=== PATIENT | male | born 1980 | race Caucasian/White ===

== ENCOUNTER 2017-02-18 10:29 | Emergency (ER) | payer BC, OTHER ==
[2017-02-18 10:45] VITALS: BP 124/77; PULSE 81; TEMP 97.9; BMI 24.9
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
== END 2017-02-18 11:40 | disposition home or self-care (01) ==
LOC: FER 10:29
PROC: 2W3FX1Z Immobilization of Left Hand using Splint (ICD-10-PCS; principal; 2017-02-18)
DX: S52.502A Unspecified fracture of the lower end of left radius, initial encounter for closed fracture (principal); W03.XXXA Other fall on same level due to collision with another person, initial encounter; Y93.89 Activity, other specified; Y92.89 Other specified places as the place of occurrence of the external cause
CPT/HCPCS: 73110-TC-LT; 99281-25

== ENCOUNTER 2018-05-21 19:18 | Emergency (ER) | payer BC, OTHER ==
[2018-05-21] MEDS ORDERED: NAPROXEN 500 MG TABLET (FP) PO ONE (19:29)
[2018-05-21] MEDS ORDERED: CEPHALEXIN MONOHYDRATE 500 MG CAPSULE (UD) PO ONE (19:29)
[2018-05-21] MEDS ORDERED: CEPHALEXIN MONOHYDRATE 500 MG CAPSULE (UD) ONE (19:33)
[2018-05-21] MEDS ORDERED: NAPROXEN 500 MG TABLET (FP) ONE (19:33)
[2018-05-21 19:34] VITALS: BP 158/101; PULSE 80; TEMP 97.6; BMI 26.1
--- NOTE | 2018-05-21 19:37 | PDOC ---
History of Present Illness - General History Source: Patient Exam Limitations: No Limitations <Deo Higgins - Last Filed: 05/21/18 19:38> - General History Source: Patient Exam Limitations: No Limitations - History of Present Illness Initial Comments: 05/21/18 20:54 The patient is a 37 year old male with no significant PMH who presents to the emergency department with right elbow pain for 2 days. The patient reports that he recently got a new tattoo around his right arm/elbow region. He also states that he slept in a couch at work last night and woke up with some intermittent numbness and redness on and around his right elbow. He denies any weakness or tingling sensation. He denies any recent injury or other symptoms. He came to the ED for concerns for a dislocated elbow. The patient denies any fever, chills, nausea, vomiting, diarrhea, constipation or urinary symptoms. He denies any chest pain , shortness of breath, headache or dizziness. The patient denies any other complaints. <Sara Fierro - Last Filed: 05/21/18 20:56> - General Chief Complaint: Pain, Acute Stated Complaint: DISLOCATED RIGHT ELBOW Time Seen by Provider: 05/21/18 19:29 Past History - Past Medical History COPD: No Other medical history: DENIES - Suicide/Smoking/Psychosocial Hx Smoking History: Never smoked Have you smoked in the past 12 months: No Information on smoking cessation initiated: No Hx Alcohol Use: No Drug/Substance Use Hx: No Substance Use Type: Alcohol <Deo Higgins - Last Filed: 05/21/18 19:38> <Sara Fierro - Last Filed: 05/21/18 20:56> - Past Medical History Allergies/Adverse Reactions: Allergies Allergy/AdvReac Type Severity Reaction Status Date / Time No Known Allergies Allergy Verified 05/21/18 19:21 Home Medications: Ambulatory Orders Cephalexin [Keflex] 500 mg PO Q6H #28 capsule 05/21/18 Naproxen 500 mg PO BID PRN #20 tablet 05/21/18 Review of Systems - Review of Systems Able to Perform ROS?: Yes Comments:: 05/21/18 20:54 GENERAL/CONSTITUTIONAL: No fever or chills. No weakness. HEAD, EYES, EARS, NOSE AND THROAT: No change in vision. No ear pain or discharge. No sore throat. CARDIOVASCULAR: No chest pain or shortness of breath. RESPIRATORY: No cough, wheezing, or hemoptysis. GASTROINTESTINAL: No nausea, vomiting, diarrhea or constipation. GENITOURINARY: No dysuria, frequency, or change in urination. MUSCULOSKELETAL: (+)right elbow pain and redness. No joint or muscle swelling.. No neck or back pain. SKIN: No rash NEUROLOGIC: No headache, vertigo, loss of consciousness, or change in strength/ sensation. ENDOCRINE: No increased thirst. No abnormal weight change. HEMATOLOGIC/LYMPHATIC: No anemia, easy bleeding, or history of blood clots. ALLERGIC/IMMUNOLOGIC: No hives or skin allergy. <Sara Fierro - Last Filed: 05/21/18 20:56> *Physical Exam - Vital Signs Last Vital Signs Temp Pulse Resp BP Pulse Ox 97.6 F 80 16 158/101 H 100 05/21/18 19:23 05/21/18 19:23 05/21/18 19:23 05/21/18 19:23 05/21/18 19:23 <Deo Higgins - Last Filed: 05/21/18 19:38> - Vital Signs Last Vital Signs Temp Pulse Resp BP Pulse Ox 97.6 F 80 16 158/101 H 100 05/21/18 19:23 05/21/18 19:23 05/21/18 19:23 05/21/18 19:23 05/21/18 19:23 - Physical Exam Comments: 05/21/18 20:55 GENERAL: Awake, alert, and fully oriented, in no acute distress HEAD: No signs of trauma EYES: PERRLA, EOMI, sclera anicteric, conjunctiva clear ENT: Auricles normal inspection, hearing grossly normal, nares patent, oropharynx clear without exudates. Moist mucosa NECK: Normal ROM, supple, no lymphadenopathy, JVD, or masses LUNGS: Breath sounds equal, clear to auscultation bilaterally. No wheezes, and no crackles HEART: Regular rate and rhythm, normal S1 and S2, no murmurs, rubs or gallops ABDOMEN: Soft, nontender, normoactive bowel sounds. No guarding, no rebound. No masses EXTREMITIES: (+)mild 3x3 posterior elbow erythema, no induration or fluctuance. Full ROM in right elbow, full strength in right hand. no edema. No clubbing or cyanosis. No cords. NEUROLOGICAL: Cranial nerves II through XII grossly intact. Normal speech, normal gait SKIN: Warm, Dry, normal turgor, no rashes or lesions noted. <Sara Fierro - Last Filed: 05/21/18 20:56> ED Treatment Course - Medications Given in the ED: ED Medications Discontinued Medications Generic Name Dose Route Start Last Admin Trade Name Benjaminq PRN Reason Stop Dose Admin Cephalexin HCl 500 mg 05/21/18 19:29 05/21/18 19:35 Keflex - PO 05/21/18 19:30 500 mg ONCE ONE Administration Naproxen 500 mg 05/21/18 19:29 05/21/18 19:35 Naprosyn - PO 05/21/18 19:30 500 mg ONCE ONE Administration <VadimSara - Last Filed: 05/21/18 20:56> Medical Decision Making - Medical Decision Making 05/21/18 19:31 A portion of this note was documented by scribe services under my direction. I have reviewed the details of the note, within reason, and agree with the documentation with the following case summary and management plan written by me. Patient treated in the ED. Nursing notes are reviewed and incorporated into the medical decision-making. Vital signs reviewed. Vital Signs Temp Pulse Resp BP Pulse Ox 97.6 F 80 16 158/101 H 100 05/21/18 19:23 05/21/18 19:23 05/21/18 19:23 05/21/18 19:23 05/21/18 19:23 37-year-old male with no medical history presents with right elbow pain since today. The patient is healthy and works out frequently at the gym. Patient reports that he recently had tattoos done around his right arm. She typically leans on his right elbow throughout the day. As he went to take a nap, he had woke up with some right elbow discomfort. He denies any trauma to the area. Patient was concerned that he may have dislocated his elbow also came to the ER. Denies any numbness. Upon my evaluation, patient was noted to have olecranon bursitis with overlying erythema of the skin. He she has full range of motion of the right elbow and no obvious gross deformities. I have very low suspicion for fractures or dislocation. Conservative measures were implemented with Obed wrap and NSAIDs. Patient was initiated on cephalexin for the erythema of the skin. I advised patient to follow-up with the orthopedist which the patient agrees with plan. I discussed the physical exam findings, ancillary test results and final diagnoses with the patient. I answered all of the patient's questions. The patient was satisfied with the care received and felt comfortable with the discharge plan and treatment plan. The patient will call their primary care physician within 24 hours to arrange follow-up and will return to the Emergency Department with any new, persistant or worsening symptoms. <Deo Higgins - Last Filed: 05/21/18 19:38> *DC/Admit/Observation/Transfer - Discharge Dispostion Decision to Admit order: No <Deo Higgins - Last Filed: 05/21/18 19:38> - Attestations Scribe Attestion: 05/21/18 20:56 Documentation prepared by Sara Fierro, acting as medical writer for Deo Higgins MD. <Sara Fierro - Last Filed: 05/21/18 20:56> Diagnosis at time of Disposition: Olecranon bursitis Qualifiers: Laterality: right Qualified Code(s): M70.21 - Olecranon bursitis, right elbow Cellulitis Qualifiers: Site of cellulitis: extremity Site of cellulitis of extremity: upper extremity Laterality: right Qualified Code(s): L03.113 - Cellulitis of right upper limb - Discharge Dispostion Disposition: HOME Condition at time of disposition: Stable - Prescriptions Prescriptions: Cephalexin [Keflex] 500 mg PO Q6H #28 capsule Naproxen 500 mg PO BID PRN #20 tablet PRN Reason: Pain - Referrals Referrals: Ezra Gonsalez MD [Staff Physician] - - Patient Instructions Printed Discharge Instructions: DI for Cellulitis -- Adult, DI for Elbow Bursitis Additional Instructions: You likely have a small skin infection and olecranon bursitis which is inflammation of the right elbow. Please take the antibiotics, cephalexin, 500 mg every 6 hours for the next 7 days. He may take 500 mg naproxen for anti- inflammation and pain control. Use the Obed wrap for comfort control. If her symptoms are persistent for more than a week, please make an appointment with an orthopedist for outpatient follow-up.
== END 2018-05-21 19:41 | disposition home or self-care (01) ==
LOC: FER 19:18
DX: M70.21 Olecranon bursitis, right elbow (principal); L03.113 Cellulitis of right upper limb
CPT/HCPCS: 99281-25